=== PATIENT | female | born 2000 | race Caucasian/White ===

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

== ENCOUNTER 2021-06-18 01:43 | Day surgery (SDC) | payer OTHER, SELFPAY ==
[2021-06-13 15:36] VITALS: BMI 48.2
--- NOTE | 2021-06-13 15:48 | PC.NURSE ---
Report to the Outpatient Waiting Room, entrance under the green pavilion located off [facility], at time _1000 on date __06/18/21 . OR Time: __1200__. - You and your visitor will be asked a series of questions to screen for COVID 19 for your protection. - A mask is required within the hospital. - Only one visitor is allowed at this time. Patient visitors will be guided where to wait when not with patient. Preoperative COVID Testing Requirements: No COVID Test needed if: (proof is required; if not received patient will have Rapid Test prior to entry) - Patient has received COVID Vaccine at least 14 days prior to procedure date or - Patient has positive COVID test result within last 90 days of surgery date. COVID Test needed if above criteria is not met If not COVID vaccinated a COVID test must be conducted within 72 hours of surgery and patient is asked to isolate self from time of testing until procedure. You will go to the [employer] [facility] Testing Site for your COVID testing. The [employer] [facility] Testing site is located at the corner of [address] [facility]. You will only be called if COVID results are positive and your surgeon may reschedule your elective surgery date. Patients may have clear liquids (water, carbonated beverages, clear teas, apple juice) until 3 hours prior to surgery with a maximum of 20 ounces. - No food from midnight until time of surgery - Infants may have breast milk until 4 hours before surgery, infant formula 6 hours prior to surgery. - Children will be allowed to drink immediately following surgery. If applicable, please bring a bottle or sippy cup to assist with drinking. Juice, water, soda, and popsicles are readily available. For infants on formula, please bring formula the day of surgery. Pacifiers are allowed. Take the following medications with a SIP of water the morning of surgery: ___INHALER,, PAIN PILL IF NEEDED Medications to discontinue per physician N/A Date to take last dose Please no make-up, nail yakut, hairspray, perfume, deodorant, or body powder the day of surgery. No jewelry (including any body piercings) or valuables the day of surgery, leave them at home. Please take a shower or bath the night before, or the morning of, surgery with an antibacterial soap. Wear comfortable, loose fitting clothing. Children are encouraged to wear pajamas. - Jewelry must be removed prior to entering the operating room. Rings and piercings that are not removed may be cut off. - The hospital will not accept responsibility for valuables. - Please leave all valuables, including medications, at home the day of surgery. If you are going home after surgery, a licensed service parts driver must drive you home. - NO public transportation without another adult. - We recommend that an adult stay with you for 24 hours following discharge. - We also recommend that you do not drive, make important decision, drink alcoholic beverages, or take any drugs that were not prescribed by your health care provider for at least 24 hours after your discharge time. For Pediatric surgeries, we recommend two adults accompany the child home (only one inside the building at this time). Follow any additional instructions given to you from your surgeon. Telephone instructions given to PT and asked if any additional questions and then verbalized understanding. Patient advised to call surgeon office or pre surgery nurse liaison [phone] if any additional questions.
[2021-06-18] VITALS (9 sets, daily range): BP systolic 99–136; BP diastolic 59–89; PULSE 62–90; RESP 16–26; TEMP 36.3–36.7; O2SAT 95–100
--- NOTE | 2021-06-18 09:06 | WPDANESEPPF ---
Anes - Initial Pre Proc Eval Procedure: Operation Date: 06/18/21 12:00 Proposed Procedures p Laparoscopic Left Ovarian Cystectomy - New Olivo MD Date/Time: 06/18/21 09:06 Surgeon: New Olivo MD Pre Op Diagnosis: pelvic pain, left ovarian cyst Patient Data Age: 21 Gender: F Height: 1.63 m Weight: 127.27 kg Allergies Allergy/AdvReac Type Severity Reaction Status Date / Time kiwi Allergy Severe ITCHY Verified 06/18/21 10:32 THROAT/HIVES nitrous oxide Allergy Severe MOUTH/THROAT Verified 06/18/21 10:32 NUMBNESS bacitracin AdvReac Severe Blister Verified 06/18/21 10:32 [From Neosporin ([id number]-[id number])] neomycin AdvReac Severe Blister Verified 06/18/21 10:32 [From Neosporin ([id number]-[id number])] polymyxin B AdvReac Severe Blister Verified 06/18/21 10:32 [From Neosporin ([id number])] azithromycin [From Zithromax] AdvReac Mild Nausea Verified 06/13/21 15:34 Home Medications Medication Instructions Recorded Confirmed Type albuterol sulfate 2 puff INHALATION PRN PRN 06/20/20 06/18/21 History hydrocodone-acetaminophen 1 tablet Q4-6H PRN 06/13/21 06/18/21 History Patient hx anesthesia problems: none Family hx anesthesia problems: none Results Review: All pre-operative results and documents have been reviewed as part of the pre-operative evaluation. [facility] Past Medical History Medical History (Updated 06/27/20 @ 13:47 by New Olivo MD) Anxiety Asthma Depression Morbid obesity with BMI of 45.0-49.9, adult Surgical History Surgical History History of tonsillectomy and adenoidectomy Social History Social History Smoking status: Never smoker Second hand tobacco smoke exposure: No Alcohol intake: never Substance use: never Substance use type: does not use Living arrangements: with family Spiritual care concerns: No Anes - Eval Final PreProcedure Day of Procedure 06/18/21 09:06 Patient weight: morbidly obese Heart: regular rate and rhythm Lungs: clear to auscultation and normal air movement Airway: Mallampati scale class II Neurological: alert and oriented Last oral intake: >/= 8 hours ASA classification: III Emergent: no Anesthetic plan: proceed Anesthesia type and monitoring: general ETT Results Review: All pre-operative results and documents have been reviewed as part of the pre-operative evaluation. Informed Consent: The patient's anesthetic plan and its attendant risks and benefits were discussed with the patient/family/POA. Questions were solicited and answers provided to the satisfaction of the patient/family/POA.
[2021-06-18] MEDS: LACTATED RINGERS 1,000 ML 30 ML IV CONT ×2 (10:40→12:56)
[2021-06-18] MEDS: ACETAMINOPHEN 500 MG TABLET 1000 MG PO (10:56)
[2021-06-18] MEDS: KETOROLAC 15 MG/ML VIAL (*BKC) IV PUSH (10:57)
--- NOTE | 2021-06-18 11:39 | PM.IMHP ---
H&P: HPI History of Present Illness Date/Time: 06/18/21 11:39 21 y/o G0 with LLQ pain. CT showed a 5 cm left ovarian cyst. She desires surgical management of her problem. Chief Complaint: Painful ovarian cyst Review of Systems Review of Systems: All systems reviewed & are unremarkable except as noted in HPI and below PMFSH Past Medical History Medical History Anxiety Asthma Depression Morbid obesity with BMI of 45.0-49.9, adult Surgical History Surgical History History of laparoscopy History of tonsillectomy and adenoidectomy Social History Social History Smoking status: Never smoker Second hand tobacco smoke exposure: No Alcohol intake: never Substance use: never Substance use type: does not use Living arrangements: with family Spiritual care concerns: No Meds Home Medications and Allergies Home Medications Medication Instructions Recorded Confirmed Type albuterol sulfate 2 puff INHALATION PRN PRN 06/20/20 06/18/21 History hydrocodone-acetaminophen 1 tablet Q4-6H PRN 06/13/21 06/18/21 History Allergies Allergy/AdvReac Type Severity Reaction Status Date / Time kiwi Allergy Severe ITCHY Verified 06/18/21 10:32 THROAT/HIVES nitrous oxide Allergy Severe MOUTH/THROAT Verified 06/18/21 10:32 NUMBNESS bacitracin AdvReac Severe Blister Verified 06/18/21 10:32 [From Neosporin ([id number])] neomycin AdvReac Severe Blister Verified 06/18/21 10:32 [From Neosporin ([id number])] polymyxin B AdvReac Severe Blister Verified 06/18/21 10:32 [From Neosporin ([id number]-[id number])] azithromycin [From Zithromax] AdvReac Mild Nausea Verified 06/13/21 15:34 Vital Signs Vital Signs - 24 hr 06/18/21 11:08 Temperature 36.7 C Pulse Rate 85 Respiratory Rate 20 Blood Pressure 99/59 L Pulse Oximetry 97 Exam Const: Orientation/consciousness: patient oriented x3 Other: Well-developed, well-nourished female in no acute distress. Neck: Thyroid: thyroid normal Lymphatic: no lymphadenopathy noted (in neck, axilla or inguinal nodes) Resp: Effort & Inspection: normal respiratory effort Auscultation: clear to auscultation bilaterally Cardio: Rate: regular rate Rhythm: regular rhythm Heart sounds: S1 normal heart sound present and S2 normal heart sound present GI: Other: ABD: Soft, nontender, nondistended. No guarding or rebound tenderness. No hepatosplenomegaly. : General: Yes no CVA tenderness Other: External genitalia: normal female hair distribution, without lesion. Urethral meatus: no lesion, non prolapsed. Bladder: no mass, nontender Vagina: well-estrogenized, without lesion or discharge. No cystocele or rectocele. Cervix: no lesion or discharge. Uterus: small, anteverted, freely mobile, nontender Adnexa: no mass detected, but LLQ tenderness on palpation Anus/perineum: no lesions, nontender Back/Spine/Pelvis: Back: no CVA tenderness Skin: General skin exam: normal color and no rashes or lesions noted Neuro: General: patient oriented x3 Extrem: Other: Extremities: nontender with no edema Psych: Mental Status: mental status grossly normal Affect: normal affect Assessment and Plan Assessment and plan (1) Pelvic pain: Code(s): R10.2 - Pelvic and perineal pain Status: Acute Assessment and Plan: A: Left-sided pelvic pain with left adnexal cyst P: Offered conservative management vs surgical treatment. She has been really bothered by her pain and strongly prefers laparoscopy with excision of left ovarian cyst. She understands risks of surgery to include risks of anesthesia, risks of pain, infection, bleeding, blood products, thromboembolic phenomena and damage to adjacent structures such as bowel, bladder, ureters, blood vessels and nerves. She understands all
--- NOTE | 2021-06-18 11:44 | WPDHPUPDATE1 ---
History and Physical Update Update Date/Time: 06/18/21 11:44 History and Physical has been reviewed, including an updated exam of the patient. There are NO changes in the patient's condition. Risks, benefits, and alternatives have been discussed and questions answered. Patient agrees to proceed with procedure.
--- NOTE | 2021-06-18 12:55 | P.OP_ITS ---
Procedure Note - Detailed Date of Procedure 06/18/21 Pre-op Diagnosis pelvic pain, left ovarian cyst Post-op Diagnosis same Procedure Performed Diagnostic laparoscopy Biopsy of possible endometriosis nodules on right ovary Cautery of possible endometriosis nodules Incision and drainage of left ovarian cyst with cautery of cyst bed Surgeon New Olivo MD Anesthesia general Findings 5cm simple left ovarian cyst. Right ovary demonstrated small purple nodules. Normal RUQ anatomy, normal vermiform appendix, normal uterus, bilateral tubes, bilateral round and uterosacral ligaments, anterior and posterior cul de sac. Description of Procedure The patient was taken to the operating room where general endotracheal anesthesia was administered. She was prepared and draped in the usual sterile fashion in the dorsal lithotomy position. The bladder was drained with a red rubber catheter. A sterile speculum was inserted into the vagina and the anterior lip of the cervix was grasped with a single-toothed tenaculum. The acorn uterine manipulator was placed. The speculum was withdrawn. Gloves were changed and attention was turned to the abdomen. An infraumbilical skin incision was made with a scalpel. The abdomen was tented and a 5 millimeter jak deless trocar trocar was advanced under direct laparoscopic visualization. Pneumoperitoneum was administered using carbon dioxide gas. A survey of the pelvis and abdomen yielded the findings noted above. A second 5mm bladeless trocar was advanced in the midline above the symphysis pubis under direct visualization. Punch biopsies of the apparent endometriosis nodules were collected from the peritoneal surface of the right ovary. Needlepoint electrocautery was used to cauterize those nodule sites, then to incise the left ovarian cyst. The cyst bed was cauterized as well. The pelvis was irrigated copiously with warmed normal saline. Hemostasis was excellent. The trocars were withdrawn and the gas was allowed to escape. The skin incisions were reapproximated using 4-0 Vicryl in interrupted subcuticular fashion. Dermaflex was applied externally. The vaginal instrumentation was withdrawn and hemostasis was excellent here as well. Sponge, lap, needle and instrument counts were correct. The patient was awakened and taken to recovery in stable condition. I was present and scrubbed through the entire procedure. Implants None Estimated Blood Loss 5 Drains No Pathology yes (Peritoneum of right ovary) Complications None Condition stable Disposition PACU
[2021-06-18] MEDS: fentaNYL CITRATE INJ (*CRX) 100 MCG/2 ML VIAL 25 MCG IV PUSH ×5 (13:02→13:38)
[2021-06-18] MEDS: oxyCODONE HCL (*CRX) 5 MG TAB IR PO (14:39)
== END 2021-06-18 15:18 | disposition home or self-care (01) ==
PROVIDERS: Visit Provider Obstetrics & Gynecology
PROC: (CPT 49320; principal; 2021-06-18 12:00)
DX: R10.2 Pelvic and perineal pain (principal); N83.292 Other ovarian cyst, left side; N73.6 Female pelvic peritoneal adhesions (postinfective); J45.909 Unspecified asthma, uncomplicated; F41.8 Other specified anxiety disorders; E66.01 Morbid (severe) obesity due to excess calories; Z68.42 Body mass index [BMI] 45.0-49.9, adult
CPT/HCPCS: 58662; 49321; 36415; 86850; 86900; 86901; 88305; A9270; J0330; J1885; J2250; J2270; J2405; J2704; J3010; J7030; J7120